=== PATIENT | male | born 1960 | race Caucasian/White ===

== ENCOUNTER 2020-07-15 16:41 | Emergency (ER) | payer MEDICARE, OTHER ==
[2020-07-15 17:36] LABS: EOSINOPHIL 2.6 % (0-5); HCT 39.4 % (42.0-52.0); LYMPHOCYTE 29.9 % (15-48); MCH 29.3 pg (25.0-31.0); MCV 88.7 fL (78.0-100.0); MONOCYTE 8.1 % (0-12); NRBC 0; PLT 156 K/uL (150-400); RBC 4.44 M/uL (4.70-6.00); RDW 13.3 % (11.5-14.0); WBC 7.3 K/uL (4.0-10.5)
[2020-07-15 17:47] LABS: INR 1.08 (0.9-1.2); PROTHROMBIN TIME 13.3 SECONDS (11.4-13.6); PTT 28.9 SECONDS (22.2-34.7)
[2020-07-15 17:48] LABS: D-DIMER < 0.27 ug/mLFEU (0.00-0.41)
[2020-07-15 17:55] LABS: ALBUMIN 3.4 g/dL (3.4-5.0); BILIRUBIN - TOTAL 0.4 mg/dL (0.2-1.0); BUN/CREAT RATIO (CALC) 23.3 RATIO; CREATININE 0.86 mg/dL (0.67-1.17); GLOBULIN (CALCULATION) 5.2 g/dL; POTASSIUM 4.2 mmol/L (3.5-5.1); TOTAL PROTEIN 8.6 g/dL (6.4-8.2)
[2020-07-15 20:02] LABS: FLU B NEGATIVE B (NEGATIVE B)
[2020-07-15] MEDS ORDERED: ONDANSETRON ODT4 MG PO (20:24)
== END 2020-07-15 20:55 | disposition home or self-care (01) ==
LOC: FER 16:41
PROVIDERS: Emergency Medicine
DX: B34.9 Viral infection, unspecified (principal); E86.0 Dehydration; E11.9 Type 2 diabetes mellitus without complications; I25.10 Atherosclerotic heart disease of native coronary artery without angina pectoris; J44.9 Chronic obstructive pulmonary disease, unspecified; Z86.73 Personal history of transient ischemic attack (TIA), and cerebral infarction without residual deficits; Z88.0 Allergy status to penicillin; Z88.5 Allergy status to narcotic agent; Z88.1 Allergy status to other antibiotic agents; Z88.8 Allergy status to other drugs, medicaments and biological substances; Z20.822 Contact with and (suspected) exposure to COVID-19; Z79.899 Other long term (current) drug therapy; Z79.4 Long term (current) use of insulin
CPT/HCPCS: 36415; 71045; 80053; 84484; 85025; 85379; 85610; 85730; 87804; 87899; 93005; J2405; J7030; U0002